=== PATIENT | male | born 1945 | race Caucasian/White ===

== ENCOUNTER 2021-08-18 09:27 | Emergency (ER) | payer MEDICARE, OTHER ==
[2021-08-18 09:38] VITALS: BP 117/53
--- NOTE | 2021-08-18 09:55 | ED Physician Documentation ---
PD HPI DYSPNEA - Stated complaint Stated Complaint: BODY ACHES,SOA - Chief complaint Chief Complaint: Resp - History obtained from History obtained from: Patient - Additional information Additional information: 76-year-old gentleman who says he may have COPD from prior smoking having quit in 2005 got acutely ill last night with shaking chills, fever to 103 and a productive cough. No sick contacts. He is fully immunized against COVID with Moderna vaccine. No pedal edema or calf pain. He is short of breath. States that during the H1N1 epidemic he has what sounds like a right sided empyema. Review of Systems Ten Systems: 10 systems reviewed and negative Constitutional: reports: Fever, Chills Cardiac: denies: Chest pain / pressure, Palpitations Respiratory: reports: Dyspnea, Cough PD PAST MEDICAL HISTORY - Present Medications Home Medications: Ambulatory Orders Medication Instructions Recorded Confirmed Amoxicillin/Potassium Clav 2 tab PO BID #20 tab 08/18/21 [Augmentin Xr 1,000-62.5 Tab] Azithromycin [Zithromax] 1 tab PO DAILY #4 tab 08/18/21 - Allergies Allergies/Adverse Reactions: Allergies Allergy/AdvReac Type Severity Reaction Status Date / Time No Known Drug Allergies Allergy Verified 08/18/21 09:38 PD ED PE NORMAL - Vitals Vital signs reviewed: Yes - General General: Alert and oriented X 3, No acute distress - HEENT HEENT: PERRL, EOMI - Neck Neck: Supple, no meningeal sign, No bony TTP - Cardiac Cardiac: RRR, No murmur - Respiratory Respiratory: No respiratory distress, Other (Diminished right base) - Abdomen Abdomen: Non tender - Back Back: No CVA TTP, No spinal TTP - Derm Derm: Normal color, Warm and dry - Extremities Extremities: No edema, No calf tenderness / cord - Neuro Neuro: Alert and oriented X 3, Normal speech Results - Vitals Vitals: Vital Signs - 24 hr 08/18/21 09:33 Temperature 37.1 C Heart Rate 86 Respiratory 24 Rate Blood Pressure 117/53 L O2 Saturation 93 - Labs Labs: Laboratory Tests 08/18/21 08/18/21 08/18/21 10:10 10:10 10:19 WBC 9.2 RBC 4.88 Hgb 15.1 Hct 44.8 MCV 91.8 MCH 30.9 MCHC 33.7 RDW 12.8 Plt Count 156 MPV 9.6 Neut # (Auto) 8.6 H Lymph # (Auto) 0.2 L [place] # (Auto) 0.3 Eos # (Auto) 0.0 Baso # (Auto) 0.0 Absolute Nucleated RBC 0.00 Nucleated RBC % 0.0 Sodium 134 L Potassium 3.9 Chloride 102 Carbon Dioxide 20 L Anion Gap 12.0 BUN 25 H Creatinine 1.2 Estimated GFR (MDRD) 59 L Glucose 184 H Lactic Acid 2.1 Calcium 8.9 - Rads (name of study) Single view chest x-ray demonstrates bibasilar opacities and potential scarring or trace effusion of the right base. Radiology: EMP read contemporaneously PD MEDICAL DECISION MAKING - ED course ED course: 76-year-old gentleman with clinical and radiographic pneumonia. He has been vaccinated against Covid but that is still a possibility and test is pending. He appears well and will be treated with antibiotics. Departure - Departure Disposition: Home, Self Care Clinical Impression: Pneumonia Condition: Good Record reviewed to determine appropriate education?: Yes Instructions: ED Pneumonia Adult Prescriptions: Amoxicillin/Potassium Clav [Augmentin Xr 1,000-62.5 Tab] 2 tab PO BID #20 tab Azithromycin [Zithromax] 1 tab PO DAILY #4 tab Comments: As discussed, your blood work is looking fairly unremarkable. You do have a mild bibasilar pneumonia on your x-ray. Return if you worsen. I sent your prescriptions electronically to the [facility] [place] Follow-up with your doctor Monday or Monday for recheck. I do recommend also considering with your physician a repeat x-ray in a few weeks to make sure all of the changes have resolved, also to see what changes were due to your prior episode with H1 N1 previously. You have a Covid test pending. You need to self quarantine until the result is done and negative. Do not leave your house. Do not get near anybody. The results should be done in 48 to 72 hours. We will call with a positive result, the fastest way to get a negative result for confirmation though is to go to the hospital website at [email or web address], click on the my [facility] tab and sign up for the patient portal. If any friends or family get sick and would like to have a Covid test done, but do not have signs or symptoms that would necessitate being hospitalized, there are multiple local options for Covid testing. [facility] keeps an updated list of testing and vaccination options at: [email or web address]. Discharge Date/Time: 08/18/21 11:16
--- NOTE | 2021-08-18 10:21 | XRAY Report ---
PROCEDURE: Chest 1 View X-Ray INDICATIONS: cough TECHNIQUE: One view of the chest was acquired. COMPARISON: None FINDINGS: Surgical changes and devices: None. Lungs and pleura: Minimal appearance of the right costophrenic angle blunting. There is a minimal kalyani earance of streaky bibasilar opacities. Mediastinum: Mediastinal contours appear normal. Heart size is normal. Bones and chest wall: No suspicious bony lesions. Overlying soft tissues appear unremarkable. IMPRESSION: Minimal streaky bibasilar opacities possibly related to dependent edema versus atelectasis/pneumonia. In addition, there is blunting of the right costophrenic angle suggestive of scarring versus trace e ffusion. No priors are available for comparison. Reviewed by: Nanci Trujillo MD on 08/18/2021 10:20 AM [facility] Approved by: Nanci Trujillo MD on 08/18/2021 10:20 AM [facility] Station ID: [id number]
[2021-08-18 10:36] LABS: BASOPHILS % (AUTO) 0.3 %; EOSINOPHILS % (AUTO) 0.1 %; HCT - HEMATOCRIT 44.8 % (42.0-52.0); HGB - HEMOGLOBIN 15.1 g/dL (14.0-18.0); LYMPHOCYTES # (AUTO) 0.2 10^3/uL (1.5-3.5); LYMPHOCYTES % (AUTO) 1.6 %; MEAN CORPUSCULAR HEMOGLOBIN 30.9 pg (27.0-31.0); MEAN CORPUSCULAR HGB CONC 33.7 g/dL (32.0-36.0); MEAN CORPUSCULAR VOLUME 91.8 fL (80.0-94.0); MEAN PLATELET VOLUME 9.6 fL (7.4-11.4); MONOCYTES # (AUTO) 0.3 10^3/uL (0.0-1.0); MONOCYTES % (AUTO) 3.3 %; NEUTROPHILS # (AUTO) 8.6 10^3/uL (1.5-6.6); NEUTROPHILS % (AUTO) 94.3 %; PLT - PLATELET COUNT 156 10^3/uL (130-450); RED BLOOD COUNT 4.88 10^6/uL (4.70-6.10); RED CELL DISTRIBUTION WIDTH 12.8 % (12.0-15.0); WHITE BLOOD COUNT 9.2 x10^3/uL (4.8-10.8)
[2021-08-18 10:41] LABS: CALCIUM 8.9 mg/dL (8.5-10.3); CREATININE 1.2 mg/dL (0.6-1.2); POTASSIUM 3.9 mmol/L (3.5-5.0)
[2021-08-18] MEDS ORDERED: AMOX/CLAV 875 MG/125 MG TABLET PO STA (10:57)
[2021-08-18] MEDS ORDERED: AZITHROMYCIN 250 MG TABLET PO STA (10:57)
--- NOTE | 2021-08-19 10:22 | ED Physician Documentation ---
ED Addendum - Addendum Addendum: 08/19/21 10:20 Overnight blood cultures grew gram negative rods suspicious for e coli pneumonia. PCR now showing e coli. d/w patient's Marlen in regards to how patient is doing and she states "we kind of had a little dispute about the medicine". I spoke with the patient and his over the phone and then clarified that he should be taking only 1000 mg augmentin (one pill) twice daily for 10 days, not two pills (i.e.,2000 mg) twice daily. Patient reports low grade temp about 100 last night. continuing to have cough, feeling slightly better. Feels mild dyspnea while experiencing chills but not currently SOA at present. Afebrile this morning. denies n/v/abd pain, diarrhea, urinary sx. Patient will continue augmentin and azithromycin and will return to the ED if not improving in a couple days. Other pertinent return precautions discussed. Plan to f/u with PMD. 08/19/21 10:27
--- NOTE | 2021-08-22 13:48 | ED Physician Documentation ---
ED Addendum - Addendum Addendum: 08/22/21 13:47 Cultures reviewed, 2 out of 2 blood cultures positive for E. coli. Previous reviewing physician had called the patient and he was doing better. I will asked the nurse to do this again. Since its been 4 days, if he is still okay feeling, probably okay to continue the current antibiotics.
== END 2021-08-18 11:16 | disposition home or self-care (01) ==
LOC: ED 09:27
DX: J15.5 Pneumonia due to Escherichia coli (principal); Z20.822 Contact with and (suspected) exposure to COVID-19
CPT/HCPCS: 36415; 71045; 80048; 83605; 85025; 87040; 87150; 87181; 99283; 99284; A9270; U0004

== ENCOUNTER 2021-08-31 17:03 | Inpatient (IN) | payer MEDICARE, OTHER ==
--- NOTE | 2021-08-31 17:25 | ED Physician Documentation ---
PD HPI CHEST PAIN - Stated complaint Stated Complaint: CP - Chief complaint Chief Complaint: Cardiac - History obtained from History obtained from: Patient - Additional information Additional information: 76-year-old gentleman with history of prostate cancer in remission and recent pneumonia was at rest today at 4 PM and developed 15 minutes of severe substernal chest pressure which was nonradiating, nonexertional, and not associated with sweats, nausea, nor shortness of breath. Since then it has been easing up. No history of heart problems. Review of Systems Ten Systems: 10 systems reviewed and negative Constitutional: denies: Fever, Chills Cardiac: denies: Palpitations Respiratory: denies: Dyspnea, Cough PD PAST MEDICAL HISTORY - Past Medical History Cardiovascular: Hypertension, High cholesterol Respiratory: None Endocrine/Autoimmune: None GI: GERD Derm: None - Past Surgical History Past Surgical History: Yes Ortho: Arthroscopic surgery - Present Medications Home Medications: Ambulatory Orders Medication Instructions Recorded Confirmed Amoxicillin/Potassium Clav 2 tab PO BID #20 tab 08/18/21 [Augmentin Xr 1,000-62.5 Tab] Azithromycin [Zithromax] 1 tab PO DAILY #4 tab 08/18/21 - Allergies Allergies/Adverse Reactions: Allergies Allergy/AdvReac Type Severity Reaction Status Date / Time No Known Drug Allergies Allergy Verified 08/31/21 17:18 - Social History Does the pt smoke?: No Smoking Status: Never smoker Does the pt drink ETOH?: No Does the pt have substance abuse?: No - Immunizations Immunizations are current?: Yes PD ED PE NORMAL - Vitals Vital signs reviewed: Yes - General General: Alert and oriented X 3, No acute distress - HEENT HEENT: PERRL, EOMI - Neck Neck: Supple, no meningeal sign, No bony TTP - Cardiac Cardiac: RRR, No murmur - Respiratory Respiratory: No respiratory distress, Clear bilaterally - Abdomen Abdomen: Non tender - Back Back: No CVA TTP, No spinal TTP - Derm Derm: Normal color, Warm and dry - Extremities Extremities: No edema, No calf tenderness / cord - Neuro Neuro: Alert and oriented X 3, Normal speech Results - Vitals Vitals: Vital Signs - 24 hr 08/31/21 08/31/21 17:14 18:18 Temperature 36.4 C L Heart Rate 73 69 Respiratory 18 13 Rate Blood Pressure 137/71 H 137/79 H O2 Saturation 96 97 Oxygen O2 Source Room air - EKG (time done) 1722 Rate: Rate (enter#) (69) Rhythm: NSR [place]: Normal Intervals: Normal [place], Other ([place] IVCD QRSd 113msec) QRS: Normal Ischemia: Normal ST segments - Labs Labs: Laboratory Tests 08/31/21 08/31/21 08/31/21 17:32 17:32 17:32 WBC 5.1 RBC 4.48 L Hgb 14.1 Hct 41.7 L MCV 93.1 MCH 31.5 H MCHC 33.8 RDW 12.4 Plt Count 337 MPV 8.6 Neut # (Auto) 3.9 Lymph # (Auto) 0.6 L [place] # (Auto) 0.3 Eos # (Auto) 0.1 Baso # (Auto) 0.1 Absolute Nucleated RBC 0.00 Nucleated RBC % 0.0 Sodium 137 Potassium 3.6 Chloride 100 L Carbon Dioxide 27 Anion Gap 10.0 BUN 15 Creatinine 1.0 Estimated GFR (MDRD) 73 L Glucose 126 H Calcium 8.6 Total Bilirubin 0.9 AST 171 H ALT 123 H Alkaline Phosphatase 165 H Troponin I High Sens 7.2 Total Protein 6.5 L Albumin 3.4 Globulin 3.1 Albumin/Globulin Ratio 1.1 Lipase 3948 H - Rads (name of study) The abdomen and pelvis demonstrates acute pancreatitis and a 45 mm liver abscess Radiology: EMP read contemporaneously PD MEDICAL DECISION MAKING - ED course ED course: 76-year-old gentleman had pneumonia 2 weeks ago and now has chest pain. At the beginning it sounded like a potential anginal equivalent but his troponin and EKG were negative. He was found to have biochemical significant pancreatitis with mild transaminitis and this was followed by CT showing pancreatitis and a liver abscess. In retrospect the E. coli bacteremia from 2 weeks ago was probably the liver abscess given that his chest x-ray was relatively underwhelming. I spoke with our on-call radiologist, Dr. Hobbs and he feels this can be drained at this facility. Also the on-call surgeon, Dr. Velez who will consult. He has an outpatient blood culture pending already from today and a second 1 was ordered. He is having rigors. Spoke with Dr. Rico for admission at 7:55 PM. Departure - Departure Disposition: [facility] DC/Xfer Clinical Impression: Pancreatitis, Hepatic abscess Condition: Serious
[2021-08-31 17:47] LABS: BASOPHILS # (AUTO) 0.1 10^3/uL (0.0-0.1); EOSINOPHILS # (AUTO) 0.1 10^3/uL (0.0-0.7); EOSINOPHILS % (AUTO) 2.6 %; HCT - HEMATOCRIT 41.7 % (42.0-52.0); HGB - HEMOGLOBIN 14.1 g/dL (14.0-18.0); LYMPHOCYTES # (AUTO) 0.6 10^3/uL (1.5-3.5); LYMPHOCYTES % (AUTO) 12.3 %; MEAN CORPUSCULAR HEMOGLOBIN 31.5 pg (27.0-31.0); MEAN CORPUSCULAR HGB CONC 33.8 g/dL (32.0-36.0); MEAN CORPUSCULAR VOLUME 93.1 fL (80.0-94.0); MEAN PLATELET VOLUME 8.6 fL (7.4-11.4); MONOCYTES # (AUTO) 0.3 10^3/uL (0.0-1.0); MONOCYTES % (AUTO) 6.5 %; NEUTROPHILS # (AUTO) 3.9 10^3/uL (1.5-6.6); NEUTROPHILS % (AUTO) 77.4 %; PLT - PLATELET COUNT 337 10^3/uL (130-450); RED BLOOD COUNT 4.48 10^6/uL (4.70-6.10); RED CELL DISTRIBUTION WIDTH 12.4 % (12.0-15.0); WHITE BLOOD COUNT 5.1 x10^3/uL (4.8-10.8)
--- NOTE | 2021-08-31 17:50 | XRAY Report ---
PROCEDURE: Chest 1 View X-Ray INDICATIONS: Chest Pain TECHNIQUE: One view of the chest was acquired. COMPARISON: 08/18/2021. FINDINGS: Surgical changes and devices: None. Lungs and pleura: No pleural effusions or pneumothorax. Streaky opacities in the lung bases. Mediastinum: Mediastinal contours appear normal. Heart size is normal. Bones and chest wall: No suspicious bony lesions. Overlying soft tissues appear unremarkable. IMPRESSION: Bibasilar atelectasis. Reviewed by: Melodie Winkler MD, PhD on 08/31/2021 4:48 PM [facility] Approved by: Melodie Winkler MD, PhD on 08/31/2021 4:48 PM [facility] Station ID: [id number]
[2021-08-31 18:26] LABS: ALBUMIN 3.4 g/dL (3.2-5.5); ALBUMIN/GLOBULIN RATIO 1.1 (1.0-2.2); BILIRUBIN,TOTAL 0.9 mg/dL (0.2-1.0); CALCIUM 8.6 mg/dL (8.5-10.3); POTASSIUM 3.6 mmol/L (3.5-5.0); TOTAL PROTEIN 6.5 g/dL (6.7-8.2)
[2021-08-31] MEDS ORDERED: iohexoL-300 100 ML VIAL ONE (18:42)
[2021-08-31] MEDS ORDERED: iohexoL-300 100 ML VIAL IVP ONE (19:17)
--- NOTE | 2021-08-31 19:26 | CT Report ---
PROCEDURE: Abdomen/Pelvis W INDICATIONS: IV only, pancreatitis CONTRAST: IV CONTRAST: Isovue 300 ml: 100 PO CONTRAST: *NO PO CONTRAST TECHNIQUE: After the administration of IV contrast, 5 mm thick sections acquired from the diaphragms to the symp hysis. 5 mm thick coronal and sagittal reformats were acquired. For radiation dose reduction, the f ollowing was used: automated exposure control, adjustment of mA and/or kV according to patient size. COMPARISON: None. FINDINGS: Image quality: Excellent. ABDOMEN: Lung bases: There is mild by basilar patchy opacity. Heart size is normal. Solid organs: Liver and spleen are normal in size. Within the medial segment left hepatic lobe super iorly, there is a 45 mm diameter peripherally enhancing low-density focus. Gallbladder is within norm al limits Biliary system is non dilated. Pancreas enhances normally. Mild fat stranding surrounds the pancreas. No adrenal nodules. Kidneys demonstrate normal size and enhancement, without hydroneph rosis. Peritoneum and bowel: Small hiatal hernia. There is mild thickening of the duodenum. No free fluid or air. Normal appendix. Nodes and vessels: No retroperitoneal or mesenteric adenopathy by size criteria. Aorta and inferior vena cava are normal in size. Miscellaneous: No ventral hernias. PELVIS: Genitourinary: Bladder wall thickness is normal. Miscellaneous: No inguinal hernias or adenopathy. Bones: No suspicious bony lesions. No vertebral body compression fractures. IMPRESSION: 1. Acute pancreatitis. 2. Secondary inflammation of the duodenum. 3. Low-density focus within the left hepatic lobe, suggestive of abscess. 4. Small hiatal hernia. 5. Normal appendix. Reviewed by: Rick Hobbs MD on 08/31/2021 7:25 PM PST Approved by: Rick Hobbs MD on 08/31/2021 7:25 PM PST Station ID: [id number]
[2021-08-31] MEDS ORDERED: cefTRIAXone 2 GM in SODIUM CHLORIDE 0.9% MINIBAG 100 ML IV STA (19:39)
[2021-08-31] MEDS ORDERED: cefTRIAXone 2 GM VIAL ONE (19:54)
[2021-08-31] MEDS ORDERED: ONDANSETRON ODT 4 MG TABLET TL PRN (19:59)
[2021-08-31] MEDS ORDERED: ONDANSETRON 4 MG/2 ML VIAL IVP PRN (19:59)
[2021-08-31] MEDS ORDERED: ACETAMINOPHEN 325 MG TABLET PO PRN (19:59)
[2021-08-31] MEDS ORDERED: SODIUM CHLORIDE FLUSH 0.9% 10 ML SYRINGE IVP PRN (19:59)
[2021-08-31] MEDS ORDERED: MORPHINE 2 MG/ML CARPUJECT IVP PRN (19:59)
[2021-08-31] MEDS ORDERED: oxyCODONE 5 MG TABLET PO PRN (19:59)
[2021-08-31] MEDS ORDERED: LACTATED RINGERS 1,000 ML IV SCH (20:00)
[2021-08-31 20:29] LABS: INR 1.2 (0.8-1.2); PT - PROTHROMBIN TIME 12.8 secs (9.9-12.6)
[2021-08-31 21:35] LABS: B. PARAPERTUSSIS- RESP PCR PAN NOT DETECTED; B. PERTUSSIS- RESP PCR PANEL NOT DETECTED; C. PNEUMONIAE- RESP PCR PANEL NOT DETECTED; CORONAVIRUS 229E-RESP PCR NOT DETECTED; CORONAVIRUS HKU1-RESP PCR NOT DETECTED; CORONAVIRUS NL63-RESP PCR NOT DETECTED; CORONAVIRUS OC43-RESP PCR NOT DETECTED; HUMAN METAPNEUMOVIRUS NOT DETECTED; INFLUENZA A- RESP PCR PANEL NOT DETECTED; INFLUENZA B - RESP PCR PANEL NOT DETECTED; M. PNEUMONIAE- RESP PCR PANEL NOT DETECTED; PARAINFLUENZA VIRUS 1 NOT DETECTED; PARAINFLUENZA VIRUS 2 NOT DETECTED; PARAINFLUENZA VIRUS 3 NOT DETECTED; PARAINFLUENZA VIRUS 4 NOT DETECTED; RHINOVIRUS/ENTEROVIRUS NOT DETECTED; RSV- RESP PCR PANEL NOT DETECTED; SARS-CoV-2 -RESP PCR PANEL NOT DETECTED
--- NOTE | 2021-08-31 22:11 | HISTORY & PHYSICAL EXAMINATION ---
Chief Complaint - Chief Complaint Chief Complaint: chest pain History of Present Illness - Admitted From Admitted From:: Home via EMS - History Obtained From Records Reviewed: [facility] History obtained from: patient Exam Limitations: none - History of Present Illness HPI Comment/Other: This is a 76-year-old white male who lives in his own home, is considered independent, and presented to the emergency room on August 18 with fever, chills, malaise. Accompanying that was shortness of breath. He smoked a pack and a half a day and quit in 2005. He states there is no change in phlegm. He hocks up a loogie once or twice a day and that is unchanged. It's a small amount and hasn't changed color in years. At that time he had no chest pain, cough, just shortness of breath. He is fully immunized with Moderna vaccine. He denied any abdominal pain, change in bowel habits. In the emergency room he had a low-grade temperature of 37.1. White cell count was normal. Lactic acid 2.1. BMP was normal. A chest x-ray had bibasilar opacities and trace right lung effusion. The thought process was that he had possible pneumonia. He was not hypoxic, tachycardic, and able to go home. He was sent home with Augmentin and azithromycin. Blood cultures were became positive within 12 hours. They grew out E. coli. The patient was contacted on August 19 and was improving. He was then contacted again August 22 when 2 out of 2 blood cultures grew out E. coli. And he was feeling better. Both times he was told to follow-up with his primary care provider. He followed up with his primary care provider today who sent him to the lab to get repeat blood cultures. He then went home. While he was home, sitting on the sofa watching TV, he had a 15-minute episode of substernal chest pain. It was nonradiating. There was no sweats, nausea or shortness of breath with it. No palpitations. He has no history of cardiac disease. He was concerned about heart disease and came to the emergency room. He states that he has been "off his feet" since August 18. As such he has not eaten very much and has lost about 10 pounds. No specific abdominal pain. He has been fatigued, no energy. On today's visit his temperature was 36.4. Heart rate 73. Respirations 18. Blood pressure 137/71 and he was 96% on room air. His exam was unremarkable for cardiopulmonary disease. He is EKG was essentially normal. Troponin was 7. Chest x-ray had the same bibasilar atelectasis. However, more extensive blood work was done today. He had a CMP done which showed AST to be 171, ALT 123, alk phos 165 and bilirubin 0.9. Lipase was 3948. In trying to track down why his liver enzymes and lipase were elevated, a CT of the abdomen and pelvis was ordered. The liver and spleen were normal in size. Biliary system was not dila adelia. Pancreas enhance normally with mild fat stranding surrounding the pancreas. However, in the medial segment of the left hepatic lobe superiorly there was a 45 mm diameter peripherally enhancing low-density focus compatible with an abscess. There is no appendicitis, diverticulitis. Small hiatal hernia. He had some secondary inflammation of the duodenum. Although he did not have a fever or elevated white cell count, the patient experienced rigors in the emergency room. Dr. Couch has already spoken to Dr. Velez from general surgery. He is also spoken to radiology on-call [facility], and both specialties agree that the patient will need percutaneous aspiration if not catheter drainage. Dr. Banks gave the patient Karely in the emergency room. Drinks 2 beers a day. Is not a diabetic. Has not had any recent travel outside [facility], much less the country. He does not like fish and as such does not eat sushi. He lives in [place] and drinks city water. 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 History - Past Medical History Cardiovascular: reports: Hypertension, High cholesterol Respiratory: reports: Shortness of breath (chronic from smoking but denies COPD or emphysema) Neuro: reports: None Endocrine/Autoimmune: reports: Other (glucose intolerance, "flunked my blood work recently") GI: reports: GERD : reports: Retention, Incontinence, Nocturia, Frequency, Other (prostate cancer ) Psych: reports: None Musculoskeletal: reports: None Derm: reports: None MRSA Hx?: No - Past Surgical History General: reports: Other (inguina hernia repair) Ortho: reports: Arthroscopic surgery /SUBSTANCE ABUSE THERAPIST: reports: Other (prostatectomy) HEENT: reports: Other (thyroglossal duct removal) - Family & Social History Family History Comment/Other: Mom and dad at age 89 and 90 respectively. He states they basically of old age and were very healthy. 2 sisters without any major medical illnesses. 1 child without any major medical illness. Living arrangement: At home Living Situation: With spouse/s.o. Social History Notes: to his first for decades. 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 Smoked 1 and a 1/2 packs/day until 2005. Drinks 2 beers a day and quit 10 days ago because he just felt so lousy. He has no history of alcohol abuse. He has never had withdrawal. He has no history of recreational substance abuse. - Substance History Use: Uses substance without health or social issues: Tobacco, Alcohol Abuse: Recurrent use of substance despite neg consequences: NONE Dependence: Experiences withdrawal or developed tolerances: NONE - POLST Patient has POLST: No POLST Status: Full Code (He wants everything done to resuscitate him) Meds/Allgy - Home Medications Home Medications: Ambulatory Orders Medication Instructions Recorded Confirmed Amoxicillin/Potassium Clav 2 tab PO BID #20 tab 08/18/21 [Augmentin Xr 1,000-62.5 Tab] Azithromycin [Zithromax] 1 tab PO DAILY #4 tab 08/18/21 - Allergies Allergies/Adverse Reactions: Allergies Allergy/AdvReac Type Severity Reaction Status Date / Time No Known Drug Allergies Allergy Verified 08/31/21 17:18 Review of Systems - Constitutional Constitutional: reports: Fatigue, Fever, Chills, Malaise, Weakness, Poor appetite, Other (All of these symptoms have been in the last 2 to 3 weeks. Rigors were tonight) - Eyes Eyes: denies: Irritation, Amaurosis, Blurred vision - Ears, Nose & Throat Ears, Nose & Throat: denies: Ear pain, Hearing loss, Hearing aids, Nasal obstruction, Nasal congestion, Sore throat, Hoarseness - Cardiovascular Cariovascular: reports: Chest pain, Exertional dyspnea, Decr. exercise tolerance. denies: Irregular heart rate, Palpitations, Edema, Lightheadedness, Syncope - Respiratory Respiratory: reports: Cough, Sputum production, Wheezing, SOB with exertion. denies: Snoring, Hemoptysis, Orthopnea, SOB at rest - Gastrointestinal Gastrointestinal: reports: Nausea, Vomiting (emesis occurred during physical exam). denies: Abdominal pain, Abdominal distention, Constipation, Diarrhea, Change in bowel habits, Rectal bleeding - Genitourinary Genitourinary: reports: Frequency, Urgency, Incontinence, Nocturia, Other (He has had all of these symptoms since his prostate resection). denies: Dysuria, Hematuria - Musculoskeletal Musculoskeletal: denies: Muscle pain, Back pain, Muscle aches, Stiffness, Gout, Joint pain - Integumentary Integumentary: denies: Rash, Pruritis, Lesions - Neurological Neurological: reports: General weakness. denies: Focal weakness, Headache, Dizziness, Numbness, Memory problems, Pre-existing deficit, Abnormal gait - Psychiatric Psychiatric: denies: Depression, Anxiety, Suicidal, Delusions, Hallucinations - Endocrine Endocrine: denies: Polyuria, Polydypsia, Polyphagia, Intolerance to cold - Hematologic/Lymphatic Hematologic/Lymphatic: denies: Anemia, Bruising, Petechiae Prior Level of Functionality: Independent with activities of daily living, no use of durable medical equipment. He feels he needs oxygen but his primary care provider states he does not. The most he can walk is about 25 to 30 feet in his house due to dyspnea on exertion. So he is slow to move. Exam - Vital Signs Reviewed Vital Signs: Yes Vital Signs: Vital Signs x48h Temp Pulse Pulse Resp BP BP Pulse Ox 08/31/21 21:30 37.1 C 73 16 114/55 L 97 08/31/21 20:00 77 13 108/60 97 08/31/21 18:18 69 13 137/79 H 97 08/31/21 17:14 36.4 C L 73 18 137/71 H 96 - Physical Exam General Appearance: positive: Alert, Moderate distress (Severe nausea, a light sheen of sweat on his forehead, and fatigue.), Other (very pale, fatigued appearing, unshaven) Eyes Bilateral: positive: PERRL, EOMI ENT: positive: Pharynx nml. negative: Oral lesions Neck: positive: No JVD, Lymphadenopathy (R), Lymphadenopathy (L) (The adenopathy both sides). negative: Stiff neck, Carotid bruit Respiratory: positive: No respiratory distress. negative: Wheezes, Rales, Rhonchi Cardiovascular: positive: Regular rate & rhythm. negative: No murmur, No gallop, Friction rub Peripheral Pulses: positive: 1+ Abdomen: positive: No organomegaly, Nml bowel sounds, Other (diffusely distended and firm abd wall, tender (mild) over LUQ but no rebound or guarding) Skin: positive: Warm, Dry, Pallor, Other Extremities: positive: Non-tender, Full ROM, No pedal edema, Other (hands cold). negative: Calf tenderness Neurologic/Psychiatric: positive: Oriented x3, CN's nml (2-12), Motor nml, Sensation nml Conclusion/Plan - Problem List (1) Hepatic abscess Conclusion/Plan: This is a gentleman that is not at risk for Entamoeba histolytica. He does not eat fish so I do not think he is at risk for fish borne disease. As such the conclusion will be that of pyogenic liver abscess. Again those tend to be on the right side. His is on the left. In a review of the literature there was one meta-analysis were 95% of liver abscesses were on the right due to greater hepatic flow on that side. Cause of pyogenic abscess would be biliary tract disease, hematogenous spread from emboli or other infective source, central line infection. None of those seem to apply to him. CT does not show any biliary pathology. Plan: Inpatient status Serology for Entamoeba histolytica Antibiotic therapy with metronidazole and Zosyn. [place] antibiotic guide says the patient is may need antibiotics for up to 4 weeks. N.p.o. status for possible percutaneous drainage tomorrow INR today MRCP to delineate his pacreatic ductal system Consider PICC line to ease access during duration of therapy (2) E coli bacteremia Conclusion/Plan: Repeat blood cultures were done today. We will have to follow-up on them to see if this problem has resolved with oral antibiotics. (3) COPD (chronic obstructive pulmonary disease) Conclusion/Plan: He states that he has chronic dyspnea on exertion for years. But he does not qualify for oxygen. He states he does not wheeze, and asked that she is on a bronchodilator therapy. But his endurance is less than 30 feet when walking in his home. Plan: Outpatient evaluation with pulmonary function studies [place] and albuterol while here Qualifiers: COPD type: emphysema Emphysema type: unspecified Qualified Code(s): J43.9 - Emphysema, unspecified (4) History of prostate cancer Conclusion/Plan: With continued symptoms of urgency, frequency, occasional incontinence when he coughs. Plan: Check urinalysis, check PSA (5) GERD (gastroesophageal reflux disease) Conclusion/Plan: As needed Protonix Qualifiers: Esophagitis presence: without esophagitis Qualified Code(s): K21.9 - Gastro-esophageal reflux disease without esophagitis (6) Chest pain Conclusion/Plan: Without hypoxia, palpitations, diaphoresis or radiation. He does have risk for coronary artery disease. Troponin was negative, EKG was negative. He would be a candidate for a stress test in the outpatient setting. Qualifiers: Chest pain type: unspecified Qualified Code(s): R07.9 - Chest pain, unspecified (7) Hyperglycemia Conclusion/Plan: He denies a diagnosis of diabetes, but states that his sugars have been climbing and he "flunked his blood test" in the last few weeks. He is not very clear about what that means. Plan: Check glycosylated hemoglobin Sliding scale insulin - Lab Results Lab results reviewed: Yes Fish Bones: 08/31/21 17:32 08/31/21 17:32 - Diagnostic Imaging Results Diagnostic Imaging Results: positive: Final report reviewed - EKG Results EKG Interpreted Independently: No EKG Comparison: No prior EKG EKG Findings: Normal sinus rhythm, no acute ischemic changes Core Measures - Anticipated LOS I expect patient to be DC'd or transferred within 96 hours.: Yes - DVT/VTE - Prophylaxis VTE/DVT Device ordered at admit?: Yes
[2021-08-31] MEDS ORDERED: PIPERACILLIN/TAZOBACTAM 3.375 GM in SODIUM CHLORIDE 0.9% MINIBAG 100 ML IV SCH (23:45)
[2021-09-01] MEDS ORDERED: PIPERACILLIN/TAZOBACTAM 4.5 GM in SODIUM CHLORIDE 0.9% MINIBAG 100 ML IV ONE ×2
[2021-09-01] MEDS: metroNIDAZOLE 500 MG/100 ML 500 MG/100 ML BAG IV SCH ×3 (00:31→15:09)
[2021-09-01] MEDS: SODIUM CHLORIDE FLUSH 0.9% 10 ML SYRINGE IVP SCH ×3 (01:41→16:51)
[2021-09-01] MEDS: PIPERACILLIN/TAZOBACTAM 3.375 GM in SODIUM CHLORIDE 0.9% MINIBAG 100 ML IV SCH ×3 (02:44→19:37)
[2021-09-01 06:49] LABS: BASOPHILS % (AUTO) 0.3 %; EOSINOPHILS % (AUTO) 0.1 %; HCT - HEMATOCRIT 41.1 % (42.0-52.0); HGB - HEMOGLOBIN 13.6 g/dL (14.0-18.0); LYMPHOCYTES # (AUTO) 0.3 10^3/uL (1.5-3.5); LYMPHOCYTES % (AUTO) 2.2 %; MEAN CORPUSCULAR HEMOGLOBIN 30.6 pg (27.0-31.0); MEAN CORPUSCULAR HGB CONC 33.1 g/dL (32.0-36.0); MEAN CORPUSCULAR VOLUME 92.6 fL (80.0-94.0); MEAN PLATELET VOLUME 8.8 fL (7.4-11.4); MONOCYTES # (AUTO) 0.6 10^3/uL (0.0-1.0); MONOCYTES % (AUTO) 4.5 %; NEUTROPHILS # (AUTO) 12.1 10^3/uL (1.5-6.6); NEUTROPHILS % (AUTO) 92.3 %; PLT - PLATELET COUNT 312 10^3/uL (130-450); RED BLOOD COUNT 4.44 10^6/uL (4.70-6.10); RED CELL DISTRIBUTION WIDTH 12.5 % (12.0-15.0); WHITE BLOOD COUNT 13.1 x10^3/uL (4.8-10.8)
[2021-09-01] MEDS ORDERED: PANTOPRAZOLE 40 MG TABLET PO SCH (07:00)
[2021-09-01 07:13] LABS: BILIRUBIN,TOTAL 2.5 mg/dL (0.2-1.0); CALCIUM 8.4 mg/dL (8.5-10.3); CREATININE 1.2 mg/dL (0.6-1.2); TOTAL PROTEIN 6.1 g/dL (6.7-8.2)
[2021-09-01] MEDS ORDERED: LACTATED RINGERS 1,000 ML IV ONE ×2 (07:18→08:45)
--- NOTE | 2021-09-01 08:01 | PROVIDER PROGRESS NOTE ---
Subjective - Prog Note Date Prog Note Date: 09/01/21 Current Medications - Current Medications Current Medications: Active Medications Acetaminophen (Acetaminophen 325 Mg Tablet) 650 mg PO Q4HR PRN PRN Reason: Pain 1 to 4 Last Admin: 08/31/21 22:10 Dose: 650 mg Enoxaparin Sodium (Enoxaparin 40 Mg/0.4 Ml Syringe) 40 mg SUBQ DAILY [facility] Lactated Ringer's (Lr) 1,000 mls @ 100 mls/hr IV .Q10H [facility] Last Admin: 08/31/21 21:31 Dose: 100 mls/hr Metronidazole (Flagyl 500 Mg/100 Ml) 500 mg in 100 mls @ 100 mls/hr IV Q8H [facility] Last Admin: 09/01/21 06:56 Dose: 100 mls/hr Piperacillin Sod/Tazobactam (Sod 3.375 gm/ Sodium Chloride) 100 mls @ 25 mls/hr IV Q8H [facility] Last Infusion: 09/01/21 06:53 Dose: Infused Lactated Ringer's (Lr) 1,000 mls @ 999 mls/hr IV ONCE ONE Stop: 09/01/21 08:18 Morphine Sulfate (Morphine 2 Mg/Ml Carpuject) 2 mg IVP Q2HR PRN PRN Reason: Pain 8 to 10 Ondansetron HCl (Ondansetron Odt 4 Mg Tablet) 4 mg TL Q6HR PRN PRN Reason: Nausea / Vomiting Ondansetron HCl (Ondansetron 4 Mg/2 Ml Vial) 4 mg IVP Q6HR PRN PRN Reason: Nausea / Vomiting Last Admin: 08/31/21 21:41 Dose: 4 mg Oxycodone HCl (Oxycodone 5 Mg Tablet) 5 mg PO Q4HR PRN PRN Reason: Pain 5 to 7 Pantoprazole Sodium (Pantoprazole 40 Mg Tablet) 40 mg PO QDAC [facility] Last Admin: 09/01/21 06:56 Dose: 40 mg Sodium Chloride (Sodium Chloride Flush 0.9% 10 Ml Syringe) 10 ml IVP PRN PRN PRN Reason: NEEDED PER PROVIDER ORDERS Last Admin: 08/31/21 21:42 Dose: 10 ml Sodium Chloride (Sodium Chloride Flush 0.9% 10 Ml Syringe) 10 ml IVP 0100,0900,1700 [facility] Last Admin: 09/01/21 01:41 Dose: 10 ml Objective - Vital Signs/Intake & Output Reviewed Vital Signs: Yes Vital Signs: Vital Signs x48h Temp Pulse Resp BP BP Pulse Ox 09/01/21 07:55 37.2 C 65 18 116/64 95 09/01/21 00:42 38.1 C H 88 17 112/60 92 Intake & Output: Intake & Output 08/29/21 08/30/21 08/31/21 09/01/21 23:59 23:59 23:59 23:59 Intake Total 100 300 Balance 100 300 - Lab Results Fish Bones: 09/01/21 06:28 09/01/21 06:28 Other Labs: Lab Results x24hrs 09/01/21 09/01/21 08/31/21 Range/Units 06:28 06:28 20:30 WBC 13.1 H (4.8-10.8) x10^3/uL RBC 4.44 L (4.70-6.10) 10^6/uL Hgb 13.6 L (14.0-18.0) g/dL Hct 41.1 L (42.0-52.0) % MCV 92.6 (80.0-94.0) fL MCH 30.6 (27.0-31.0) pg MCHC 33.1 (32.0-36.0) g/dL RDW 12.5 (12.0-15.0) % Plt Count 312 (130-450) 10^3/uL MPV 8.8 (7.4-11.4) fL Neut # (Auto) 12.1 H (1.5-6.6) 10^3/uL Lymph # (Auto) 0.3 L (1.5-3.5) 10^3/uL [place] # (Auto) 0.6 (0.0-1.0) 10^3/uL Eos # (Auto) 0.0 (0.0-0.7) 10^3/uL Baso # (Auto) 0.0 (0.0-0.1) 10^3/uL Absolute Nucleated RBC 0.00 x10^3/uL Nucleated RBC % 0.0 /100WBC PT (9.9-12.6) secs INR (0.8-1.2) Sodium 135 (135-145) mmol/L Potassium 4.0 (3.5-5.0) mmol/L Chloride 100 L (101-111) mmol/L Carbon Dioxide 25 (21-32) mmol/L Anion Gap 10.0 (6-13) BUN 16 (6-20) mg/dL Creatinine 1.2 (0.6-1.2) mg/dL Estimated GFR (MDRD) 59 L (>89) Glucose 229 H (70-100) mg/dL Calcium 8.4 L (8.5-10.3) mg/dL Total Bilirubin 2.5 H (0.2-1.0) mg/dL AST 484 H (10-42) IU/L ALT 470 H (10-60) IU/L Alkaline Phosphatase 214 H (42-121) IU/L Troponin I High Sens (2.3-19.7) ng/L Total Protein 6.1 L (6.7-8.2) g/dL Albumin 3.0 L (3.2-5.5) g/dL Globulin 3.1 (2.1-4.2) g/dL Albumin/Globulin Ratio 1.0 (1.0-2.2) Amylase 1261 H* (28-100) U/L Lipase (22-51) U/L Nasal Adenovirus (PCR) NOT DETECTED Nasal B. parapertussis DNA (PCR) NOT DETECTED Nasal Coronavir 229E PCR NOT DETECTED Nasal Coronavir HKU1 PCR NOT DETECTED Nasal Coronavir NL63 PCR NOT DETECTED Nasal Coronavir OC43 PCR NOT DETECTED Nasal Enterovir/Rhinovir PCR NOT DETECTED Nasal Influenza B PCR NOT DETECTED Nasal Influenza A PCR NOT DETECTED Nasal Parainfluen 1 PCR NOT DETECTED Nasal Parainfluen 2 PCR NOT DETECTED Nasal Parainfluen 3 PCR NOT DETECTED Nasal Parainfluen 4 PCR NOT DETECTED Nasal RSV (PCR) NOT DETECTED Nasal B.pertussis DNA PCR NOT DETECTED Nasal C.pneumoniae (PCR) NOT DETECTED [place] Human Metapneumo PCR NOT DETECTED Nasal M.pneumoniae (PCR) NOT DETECTED Nasal SARS-CoV-2 (PCR) NOT DETECTED 08/31/21 08/31/21 08/31/21 Range/Units 20:09 17:32 17:32 WBC (4.8-10.8) x10^3/uL RBC (4.70-6.10) 10^6/uL Hgb (14.0-18.0) g/dL Hct (42.0-52.0) % MCV (80.0-94.0) fL MCH (27.0-31.0) pg MCHC (32.0-36.0) g/dL RDW (12.0-15.0) % Plt Count (130-450) 10^3/uL MPV (7.4-11.4) fL Neut # (Auto) (1.5-6.6) 10^3/uL Lymph # (Auto) (1.5-3.5) 10^3/uL [place] # (Auto) (0.0-1.0) 10^3/uL Eos # (Auto) (0.0-0.7) 10^3/uL Baso # (Auto) (0.0-0.1) 10^3/uL Absolute Nucleated RBC x10^3/uL Nucleated RBC % /100WBC PT 12.8 H (9.9-12.6) secs INR 1.2 (0.8-1.2) Sodium 137 (135-145) mmol/L Potassium 3.6 (3.5-5.0) mmol/L Chloride 100 L (101-111) mmol/L Carbon Dioxide 27 (21-32) mmol/L Anion Gap 10.0 (6-13) BUN 15 (6-20) mg/dL Creatinine 1.0 (0.6-1.2) mg/dL Estimated GFR (MDRD) 73 L (>89) Glucose 126 H (70-100) mg/dL Calcium 8.6 (8.5-10.3) mg/dL Total Bilirubin 0.9 (0.2-1.0) mg/dL AST 171 H (10-42) IU/L ALT 123 H (10-60) IU/L Alkaline Phosphatase 165 H (42-121) IU/L Troponin I High Sens 7.2 (2.3-19.7) ng/L Total Protein 6.5 L (6.7-8.2) g/dL Albumin 3.4 (3.2-5.5) g/dL Globulin 3.1 (2.1-4.2) g/dL Albumin/Globulin Ratio 1.1 (1.0-2.2) Amylase (28-100) U/L Lipase 3948 H (22-51) U/L Nasal Adenovirus (PCR) Nasal B. parapertussis DNA (PCR) Nasal Coronavir 229E PCR Nasal Coronavir HKU1 PCR Nasal Coronavir NL63 PCR Nasal Coronavir OC43 PCR Nasal Enterovir/Rhinovir PCR Nasal Influenza B PCR Nasal Influenza A PCR Nasal Parainfluen 1 PCR Nasal Parainfluen 2 PCR Nasal Parainfluen 3 PCR Nasal Parainfluen 4 PCR Nasal RSV (PCR) Nasal B.pertussis DNA PCR Nasal C.pneumoniae (PCR) [place] Human Metapneumo PCR Nasal M.pneumoniae (PCR) Nasal SARS-CoV-2 (PCR) 08/31/21 Range/Units 17:32 WBC 5.1 (4.8-10.8) x10^3/uL RBC 4.48 L (4.70-6.10) 10^6/uL Hgb 14.1 (14.0-18.0) g/dL Hct 41.7 L (42.0-52.0) % MCV 93.1 (80.0-94.0) fL MCH 31.5 H (27.0-31.0) pg MCHC 33.8 (32.0-36.0) g/dL RDW 12.4 (12.0-15.0) % Plt Count 337 (130-450) 10^3/uL MPV 8.6 (7.4-11.4) fL Neut # (Auto) 3.9 (1.5-6.6) 10^3/uL Lymph # (Auto) 0.6 L (1.5-3.5) 10^3/uL [place] # (Auto) 0.3 (0.0-1.0) 10^3/uL Eos # (Auto) 0.1 (0.0-0.7) 10^3/uL Baso # (Auto) 0.1 (0.0-0.1) 10^3/uL Absolute Nucleated RBC 0.00 x10^3/uL Nucleated RBC % 0.0 /100WBC PT (9.9-12.6) secs INR (0.8-1.2) Sodium (135-145) mmol/L Potassium (3.5-5.0) mmol/L Chloride (101-111) mmol/L Carbon Dioxide (21-32) mmol/L Anion Gap (6-13) BUN (6-20) mg/dL Creatinine (0.6-1.2) mg/dL Estimated GFR (MDRD) (>89) Glucose (70-100) mg/dL Calcium (8.5-10.3) mg/dL Total Bilirubin (0.2-1.0) mg/dL AST (10-42) IU/L ALT (10-60) IU/L Alkaline Phosphatase (42-121) IU/L Troponin I High Sens (2.3-19.7) ng/L Total Protein (6.7-8.2) g/dL Albumin (3.2-5.5) g/dL Globulin (2.1-4.2) g/dL Albumin/Globulin Ratio (1.0-2.2) Amylase (28-100) U/L Lipase (22-51) U/L Nasal Adenovirus (PCR) Nasal B. parapertussis DNA (PCR) Nasal Coronavir 229E PCR Nasal Coronavir HKU1 PCR Nasal Coronavir NL63 PCR Nasal Coronavir OC43 PCR Nasal Enterovir/Rhinovir PCR Nasal Influenza B PCR Nasal Influenza A PCR Nasal Parainfluen 1 PCR Nasal Parainfluen 2 PCR Nasal Parainfluen 3 PCR Nasal Parainfluen 4 PCR Nasal RSV (PCR) Nasal B.pertussis DNA PCR Nasal C.pneumoniae (PCR) [place] Human Metapneumo PCR Nasal M.pneumoniae (PCR) Nasal SARS-CoV-2 (PCR) ABX Reporting Has patient been on IV antibiotics over the past 48 hours?: Yes Sepsis Event Note (H) - Evaluation Current Stage of Sepsis: Sepsis Possible source of Sepsis: positive: GI tract/intra-abdominal - Sepsis Criteria Sepsis Criteria: Recorded Temperature greater than 38.3C or Less than 36C, WBC count greater than 12,000 or less than 4000, Hepatic: Bilirubin greater than 2mg/dl Assessment/Plan - Problem List (1) Sepsis Impression: He has sepsis secondary to the liver abscess and the E. coli bacteremia. He continues to have fevers and his white count is increased to 13,000 today with a left shift. His blood pressure is stable and he is not tachycardic. Initial blood cultures grew E. coli and repeat blood cultures are pending. We will keep him on Zosyn and Flagyl IV empirically to cover for gram negatives, anaerobes, and Entamoeba histolytica. Continue IV hydration with lactated Ringer's. (2) Hepatic abscess Impression: CT is concerning for left lobe liver abscess. He does not have risk factors for amoeba histolytica we have ordered serology. Imaging did not reveal any biliary dilatation but we have also ordered an MRCP for further evaluation. IR has been consulted for drainage. We will keep the patient on Zosyn and Flagyl IV empirically. Follow up MRCP results. He will likely need a PICC line for prolonged IV antibiotics of 2-4 weeks if there is adequate drainage of the abscess.. (3) E coli bacteremia Impression: Blood cultures from August 18 grew E. coli. He is now on Zosyn and Flagyl IV. Repeat blood cultures are pending. This appears to be the cause of the hepatic abscess. (4) Pancreatitis Impression: He presented with chest pain but his lipase is nearly [address] of the abdomen pelvis confirms pancreatitis. There is no biliary dilatation. His LFTs are elevated today. We will give him 2 L of lactated Ringer's and increase maintenance IV fluids to 200 mL an hour. Continue Zofran as needed and morphine IV for pain control. Follow-up MRCP results. NPO. Qualifiers: Chronicity: acute (5) Chest pain Impression: He presented with chest pain but there is low suspicion for ACS. His EKG does not suggest ischemia and his initial troponin is negative. Suspect this may related to the underlying abscess or pancreatitis. We will continue to trend his troponin. Qualifiers: Chest pain type: unspecified Qualified Code(s): R07.9 - Chest pain, unspecified (6) Transaminitis Impression: His LFTs are quite elevated today compared to admission. His total bilirubin is not 2.5 and his AST and ALT are nearly 500. Imaging yesterday revealed no obvious biliary dilation. This may be related to the abscess but we have ordered MRCP for further evaluation. (7) History of prostate cancer Impression: This is in remission. PSA has been ordered. (8) COPD (chronic obstructive pulmonary disease) Impression: Not in exacerbation. Continue with albuterol as needed. Qualifiers: COPD type: emphysema Emphysema type: unspecified Qualified Code(s): J43.9 - Emphysema, unspecified (9) GERD (gastroesophageal reflux disease) Impression: Continue protonix. Qualifiers: Esophagitis presence: without esophagitis Qualified Code(s): K21.9 - Gastro-esophageal reflux disease without esophagitis
--- NOTE | 2021-09-01 10:41 | CONSULTATION NOTE ---
Referring Provider Consult Date: 09/01/21 Chief Complaint - Chief Complaint Chief Complaint: not feeling well for a week followed by left upper quadrant pain History of Present Illness - Admitted From Admitted From:: ED - History Obtained From Records Reviewed: yes History obtained from: pt Exam Limitations: none - History of Present Illness HPI Comment/Other: Not feeling well for a week. He was seen and evaluated a week ago. Blood cultures positive for ecoli. Yesterday he developed left upper quadrant discomfort. He was again seen and evaluated in the ED. Ct scan distal p ancreatitis, fairly mild, and 4 cm right lobe liver abscess. Gallbladder normal by ct. History - Past Medical History Cardiovascular: reports: Hypertension, High cholesterol Respiratory: reports: Shortness of breath (chronic from smoking but denies COPD or emphysema) Neuro: reports: None Endocrine/Autoimmune: reports: Other (glucose intolerance, "flunked my blood work recently") GI: reports: GERD : reports: Retention, Incontinence, Nocturia, Frequency, Other (prostate cancer ) Psych: reports: None Musculoskeletal: reports: None Derm: reports: None MRSA Hx?: No - Past Surgical History General: reports: Other (inguina hernia repair) Ortho: reports: Arthroscopic surgery /FR[employer]: reports: Other (prostatectomy) HEENT: reports: Other (thyroglossal duct removal) - Family & Social History Family History Comment/Other: Mom and dad at age 89 and 90 respectively. He states they basically of old age and were very healthy. 2 sisters without any major medical illnesses. 1 child without any major medical illness. Living arrangement: At home Living Situation: With spouse/s.o. Social History Notes: to his first for decades. Retired [employer] where he was [employer]. Smoked 1 and a 1/2 packs/day until 2005. Drinks 2 beers a day and quit 10 days ago because he just felt so lousy. He has no history of alcohol abuse. He has never had withdrawal. He has no history of recreational substance abuse. - Substance History Use: Uses substance without health or social issues: Tobacco, Alcohol Abuse: Recurrent use of substance despite neg consequences: NONE Dependence: Experiences withdrawal or developed tolerances: NONE - POLST Patient has POLST: No POLST Status: Full Code (He wants everything done to resuscitate him) Meds/Allgy - Home Medications Home Medications: Ambulatory Orders Medication Instructions Recorded Confirmed Amoxicillin/Potassium Clav 2 tab PO BID #20 tab 08/18/21 [Augmentin Xr 1,000-62.5 Tab] Azithromycin [Zithromax] 1 tab PO DAILY #4 tab 08/18/21 - Allergies Allergies/Adverse Reactions: Allergies Allergy/AdvReac Type Severity Reaction Status Date / Time No Known Drug Allergies Allergy Verified 08/31/21 17:18 Review of Systems - Other Findings Other Findings: 10 pt ros as above otherwise unremarkable Exam - Vital Signs Reviewed Vital Signs: Yes Vital Signs: Vital Signs x48h Temp Pulse Resp BP Pulse Ox 09/01/21 07:55 37.2 C 65 18 116/64 95 - Physical Exam General Appearance: positive: No acute distress, Alert Eyes Bilateral: positive: PERRL, EOMI, No scleral icterus ENT: positive: No signs of dehydration Neck: positive: No JVD Respiratory: positive: No respiratory distress Cardiovascular: positive: Regular rate & rhythm Abdomen: positive: No distention, Other (mild left upper quadrant tenderness no peritoneal signs) Neurologic/Psychiatric: positive: Oriented x3 Conclusion/Plan - Problem List (1) Hepatic abscess Conclusion/Plan: right lobe liver abscess and fairly mild pancreatitis of the tail. Agree with current care perhaps clears tomorrow if his ileus is improved. in patient or outpatient ultrasound gallbladder is recommended if his mrcp does not show gallstones. - Lab Results Lab results reviewed: Yes Fish Bones: 09/01/21 06:28 09/01/21 06:28
[2021-09-01 10:52] LABS: PSA FREE < 0.005 ng/mL (0.16-2.81); PSA TOTAL < 0.008 ng/mL (0.000-2.000)
[2021-09-01] MEDS ORDERED: GADOBUTROL 10 MMOL/10 ML VIAL ONE (11:24)
--- NOTE | 2021-09-01 12:43 | PHARMACY PROGRESS NOTE ---
- Best Possible Medication History Admit Date and Time: 08/31/211958 Processed by: Pharmacy Medication History completed: Yes Patient Interview: Completed As the person ultimately responsible for medication therapy, providers are able to order a medication from an existing home medication list in [facility] via the "Reconcile Routine" prior to Confirmation of that medication by call center support representative. Such practice is discouraged except when the physician, in their clinical donny gment, deems that a medical need exists for a medication without regard to previous use.
--- NOTE | 2021-09-01 13:41 | MRI Report ---
PROCEDURE: MRCP W/WO INDICATIONS: liver abscess, pancreatitis CONTRAST: IV CONTRAST: Gadavist ml: 8.1 TECHNIQUE: Coronal HASTE, axial 2D FLASH in- and [id number]; axial breath-hold T2 FSE. Oblique coronal and ax ial thin-slice HASTE, radial thick-slab HASTE centered on the extrahepatic bile ducts. Dynamic axial VIBE during the administration of contrast; post-contrast coronal VIBE or 2D FLASH with fat saturati on from the hepatic dome to the iliac crests. Diffusion weighted imaging and ADC also performed. COMPARISON: CT abdomen pelvis 08/31/2021. FINDINGS: Image quality: There is motion artifact limiting evaluation. Lung bases: No basal pleural effusions. Heart size is normal. Biliary ducts and panreas: The gallbladder is distended with a small dependent gallstone measuring ap proximately 0.3 cm. No definite gallbladder wall thickening or pericholecystic fluid. No intra or ext rahepatic biliary ductal dilatation. There is soft tissue fullness at the ampulla without a definite discrete mass. There is suggestion of a low signal intensity filling defect in the distal common bile duct at the ampulla which may reflect choledocholithiasis but evaluation is limited by motion artifa ct. No pancreatic duct dilatation. There is peripancreatic edema and fluid redemonstrated consistent with acute interstitial edematous pancreatitis. No areas of hypoenhancement in the pancreas to suggest ne crosis. No acute peripancreatic fluid collections. Solid organs: Within segment 4A of the left hepatic lobe, there is a thick-walled peripherally enhan cing fluid collection measuring approximately 4.6 x 3.4 x 4.0 cm. There is mild indistinct enhancemen t in the adjacent hepatic parenchyma. The spleen is normal in size. No adrenal nodules. Kidneys demon strate no hydronephrosis. Nodes and vessels: No retroperitoneal or mesenteric adenopathy by size criteria. Aorta and inferior vena cava are normal in size. Bowel and peritoneum: There is mild wall thickening of the visualized portion of the duodenum consi stent with a duodenitis. There is associated mild fat stranding and free fluid. Bones and soft tissues: No ventral hernias. Bone marrow is normal in overall signal. IMPRESSION: 1. Cholelithiasis with a small dependent gallstone demonstrated but no definite evidence of cholecyst itis. 2. Peripancreatic fat stranding and fluid redemonstrated consistent with acute interstitial edematous pancreatitis. No acute peripancreatic fluid collections or evidence of necrosis. No pancreatic duct dilatation. 4. No biliary ductal dilatation. There is possible choledocholithiasis in the distal common bile duct but evaluation is limited by motion artifact. Recommend correlation with laboratory values. 5. Mild soft tissue fullness in the ampulla without a definite discrete mass. The findings are also n onspecific and may reflect sequelae of a recently passed stone or a subtle mass. Recommend continued follow-up with laboratory values and if there is clinical suspicion for an obstructing lesion, furthe r evaluation may be obtained with ERCP. 6. Segmental wall thickening of the third portion of the duodenum with associated fat stranding and f luid consistent with a duodenitis. 7. Thick-walled peripherally enhancing fluid collection in the left hepatic lobe again suggestive of an abscess. Reviewed by: Junior Juarez MD on 09/01/2021 1:40 PM PST Approved by: Junior Juarez MD on 09/01/2021 1:40 PM PST Station ID: [id number]
[2021-09-01 14:31] LABS: ALBUMIN 2.8 g/dL (3.2-5.5); BILIRUBIN,DIRECT 1.9 mg/dL (0.1-0.5); BILIRUBIN,TOTAL 3.1 mg/dL (0.2-1.0); TOTAL PROTEIN 5.9 g/dL (6.7-8.2)
[2021-09-01] MEDS: LACTATED RINGERS 1,000 ML IV SCH ×3 (15:08→20:28)
[2021-09-01] MEDS ORDERED: GADOBUTROL 10 MMOL/10 ML VIAL IVP ONE (15:35)
--- NOTE | 2021-09-01 17:28 | PROVIDER PROGRESS NOTE ---
Objective - Vital Signs/Intake & Output Vital Signs: Vital Signs x48h Temp Pulse Resp BP Pulse Ox 09/01/21 16:19 36.7 C 62 19 113/68 94 09/01/21 12:26 36.7 C 95 19 114/66 95 Intake & Output: Intake & Output 08/29/21 08/30/21 08/31/21 09/01/21 23:59 23:59 23:59 23:59 Intake Total 100 3610 Balance 100 3610 - Lab Results Fish Bones: 09/01/21 06:28 09/01/21 06:28 Other Labs: Lab Results x24hrs 09/01/21 09/01/21 09/01/21 Range/Units 10:48 10:48 09:39 WBC (4.8-10.8) x10^3/uL RBC (4.70-6.10) 10^6/uL Hgb (14.0-18.0) g/dL Hct (42.0-52.0) % MCV (80.0-94.0) fL MCH (27.0-31.0) pg MCHC (32.0-36.0) g/dL RDW (12.0-15.0) % Plt Count (130-450) 10^3/uL MPV (7.4-11.4) fL Neut # (Auto) (1.5-6.6) 10^3/uL Lymph # (Auto) (1.5-3.5) 10^3/uL Meriwether # (Auto) (0.0-1.0) 10^3/uL Eos # (Auto) (0.0-0.7) 10^3/uL Baso # (Auto) (0.0-0.1) 10^3/uL Absolute Nucleated RBC x10^3/uL Nucleated RBC % /100WBC PT (9.9-12.6) secs INR (0.8-1.2) Sodium (135-145) mmol/L Potassium (3.5-5.0) mmol/L Chloride (101-111) mmol/L Carbon Dioxide (21-32) mmol/L Anion Gap (6-13) BUN (6-20) mg/dL Creatinine (0.6-1.2) mg/dL Estimated GFR (MDRD) (>89) Glucose (70-100) mg/dL Calcium (8.5-10.3) mg/dL Total Bilirubin 3.1 H (0.2-1.0) mg/dL Direct Bilirubin 1.9 H (0.1-0.5) mg/dL AST 446 H (10-42) IU/L ALT 466 H (10-60) IU/L Alkaline Phosphatase 204 H (42-121) IU/L Troponin I High Sens 21.5 H* (2.3-19.7) ng/L Total Protein 5.9 L (6.7-8.2) g/dL Albumin 2.8 L (3.2-5.5) g/dL Globulin 3.1 (2.1-4.2) g/dL Albumin/Globulin Ratio (1.0-2.2) Amylase (28-100) U/L Lipase (22-51) U/L Prostate Specific Ag < 0.008 (0.000-2.000) ng/mL Free PSA < 0.005 L (0.16-2.81) ng/mL % Free PSA Calc TNP Nasal Adenovirus (PCR) Nasal B. parapertussis DNA (PCR) Nasal Coronavir 229E PCR Nasal Coronavir HKU1 PCR Nasal Coronavir NL63 PCR Nasal Coronavir OC43 PCR Nasal Enterovir/Rhinovir PCR Nasal Influenza B PCR Nasal Influenza A PCR Nasal Parainfluen 1 PCR Nasal Parainfluen 2 PCR Nasal Parainfluen 3 PCR Nasal Parainfluen 4 PCR Nasal RSV (PCR) Nasal B.pertussis DNA PCR Nasal C.pneumoniae (PCR) Kraig Human Metapneumo PCR Nasal M.pneumoniae (PCR) Nasal SARS-CoV-2 (PCR) 09/01/21 09/01/21 09/01/21 Range/Units 06:28 06:28 06:28 WBC 13.1 H (4.8-10.8) x10^3/uL RBC 4.44 L (4.70-6.10) 10^6/uL Hgb 13.6 L (14.0-18.0) g/dL Hct 41.1 L (42.0-52.0) % MCV 92.6 (80.0-94.0) fL MCH 30.6 (27.0-31.0) pg MCHC 33.1 (32.0-36.0) g/dL RDW 12.5 (12.0-15.0) % Plt Count 312 (130-450) 10^3/uL MPV 8.8 (7.4-11.4) fL Neut # (Auto) 12.1 H (1.5-6.6) 10^3/uL Lymph # (Auto) 0.3 L (1.5-3.5) 10^3/uL Meriwether # (Auto) 0.6 (0.0-1.0) 10^3/uL Eos # (Auto) 0.0 (0.0-0.7) 10^3/uL Baso # (Auto) 0.0 (0.0-0.1) 10^3/uL Absolute Nucleated RBC 0.00 x10^3/uL Nucleated RBC % 0.0 /100WBC PT (9.9-12.6) secs INR (0.8-1.2) Sodium 135 (135-145) mmol/L Potassium 4.0 (3.5-5.0) mmol/L Chloride 100 L (101-111) mmol/L Carbon Dioxide 25 (21-32) mmol/L Anion Gap 10.0 (6-13) BUN 16 (6-20) mg/dL Creatinine 1.2 (0.6-1.2) mg/dL Estimated GFR (MDRD) 59 L (>89) Glucose 229 H (70-100) mg/dL Calcium 8.4 L (8.5-10.3) mg/dL Total Bilirubin 2.5 H (0.2-1.0) mg/dL Direct Bilirubin (0.1-0.5) mg/dL AST 484 H (10-42) IU/L ALT 470 H (10-60) IU/L Alkaline Phosphatase 214 H (42-121) IU/L Troponin I High Sens 23.3 H* (2.3-19.7) ng/L Total Protein 6.1 L (6.7-8.2) g/dL Albumin 3.0 L (3.2-5.5) g/dL Globulin 3.1 (2.1-4.2) g/dL Albumin/Globulin Ratio 1.0 (1.0-2.2) Amylase 1261 H* (28-100) U/L Lipase (22-51) U/L Prostate Specific Ag (0.000-2.000) ng/mL Free PSA (0.16-2.81) ng/mL % Free PSA Calc Nasal Adenovirus (PCR) Nasal B. parapertussis DNA (PCR) Nasal Coronavir 229E PCR Nasal Coronavir HKU1 PCR Nasal Coronavir NL63 PCR Nasal Coronavir OC43 PCR Nasal Enterovir/Rhinovir PCR Nasal Influenza B PCR Nasal Influenza A PCR Nasal Parainfluen 1 PCR Nasal Parainfluen 2 PCR Nasal Parainfluen 3 PCR Nasal Parainfluen 4 PCR Nasal RSV (PCR) Nasal B.pertussis DNA PCR Nasal C.pneumoniae (PCR) Kraig Human Metapneumo PCR Nasal M.pneumoniae (PCR) Nasal SARS-CoV-2 (PCR) 08/31/21 08/31/21 08/31/21 Range/Units 20:30 20:09 17:32 WBC (4.8-10.8) x10^3/uL RBC (4.70-6.10) 10^6/uL Hgb (14.0-18.0) g/dL Hct (42.0-52.0) % MCV (80.0-94.0) fL MCH (27.0-31.0) pg MCHC (32.0-36.0) g/dL RDW (12.0-15.0) % Plt Count (130-450) 10^3/uL MPV (7.4-11.4) fL Neut # (Auto) (1.5-6.6) 10^3/uL Lymph # (Auto) (1.5-3.5) 10^3/uL Meriwether # (Auto) (0.0-1.0) 10^3/uL Eos # (Auto) (0.0-0.7) 10^3/uL Baso # (Auto) (0.0-0.1) 10^3/uL Absolute Nucleated RBC x10^3/uL Nucleated RBC % /100WBC PT 12.8 H (9.9-12.6) secs INR 1.2 (0.8-1.2) Sodium (135-145) mmol/L Potassium (3.5-5.0) mmol/L Chloride (101-111) mmol/L Carbon Dioxide (21-32) mmol/L Anion Gap (6-13) BUN (6-20) mg/dL Creatinine (0.6-1.2) mg/dL Estimated GFR (MDRD) (>89) Glucose (70-100) mg/dL Calcium (8.5-10.3) mg/dL Total Bilirubin (0.2-1.0) mg/dL Direct Bilirubin (0.1-0.5) mg/dL AST (10-42) IU/L ALT (10-60) IU/L Alkaline Phosphatase (42-121) IU/L Troponin I High Sens 7.2 (2.3-19.7) ng/L Total Protein (6.7-8.2) g/dL Albumin (3.2-5.5) g/dL Globulin (2.1-4.2) g/dL Albumin/Globulin Ratio (1.0-2.2) Amylase (28-100) U/L Lipase (22-51) U/L Prostate Specific Ag (0.000-2.000) ng/mL Free PSA (0.16-2.81) ng/mL % Free PSA Calc Nasal Adenovirus (PCR) NOT DETECTED Nasal B. parapertussis DNA (PCR) NOT DETECTED Nasal Coronavir 229E PCR NOT DETECTED Nasal Coronavir HKU1 PCR NOT DETECTED Nasal Coronavir NL63 PCR NOT DETECTED Nasal Coronavir OC43 PCR NOT DETECTED Nasal Enterovir/Rhinovir PCR NOT DETECTED Nasal Influenza B PCR NOT DETECTED Nasal Influenza A PCR NOT DETECTED Nasal Parainfluen 1 PCR NOT DETECTED Nasal Parainfluen 2 PCR NOT DETECTED Nasal Parainfluen 3 PCR NOT DETECTED Nasal Parainfluen 4 PCR NOT DETECTED Nasal RSV (PCR) NOT DETECTED Nasal B.pertussis DNA PCR NOT DETECTED Nasal C.pneumoniae (PCR) NOT DETECTED Kraig Human Metapneumo PCR NOT DETECTED Nasal M.pneumoniae (PCR) NOT DETECTED Nasal SARS-CoV-2 (PCR) NOT DETECTED 08/31/21 08/31/21 Range/Units 17:32 17:32 WBC 5.1 (4.8-10.8) x10^3/uL RBC 4.48 L (4.70-6.10) 10^6/uL Hgb 14.1 (14.0-18.0) g/dL Hct 41.7 L (42.0-52.0) % MCV 93.1 (80.0-94.0) fL MCH 31.5 H (27.0-31.0) pg MCHC 33.8 (32.0-36.0) g/dL RDW 12.4 (12.0-15.0) % Plt Count 337 (130-450) 10^3/uL MPV 8.6 (7.4-11.4) fL Neut # (Auto) 3.9 (1.5-6.6) 10^3/uL Lymph # (Auto) 0.6 L (1.5-3.5) 10^3/uL Meriwether # (Auto) 0.3 (0.0-1.0) 10^3/uL Eos # (Auto) 0.1 (0.0-0.7) 10^3/uL Baso # (Auto) 0.1 (0.0-0.1) 10^3/uL Absolute Nucleated RBC 0.00 x10^3/uL Nucleated RBC % 0.0 /100WBC PT (9.9-12.6) secs INR (0.8-1.2) Sodium 137 (135-145) mmol/L Potassium 3.6 (3.5-5.0) mmol/L Chloride 100 L (101-111) mmol/L Carbon Dioxide 27 (21-32) mmol/L Anion Gap 10.0 (6-13) BUN 15 (6-20) mg/dL Creatinine 1.0 (0.6-1.2) mg/dL Estimated GFR (MDRD) 73 L (>89) Glucose 126 H (70-100) mg/dL Calcium 8.6 (8.5-10.3) mg/dL Total Bilirubin 0.9 (0.2-1.0) mg/dL Direct Bilirubin (0.1-0.5) mg/dL AST 171 H (10-42) IU/L ALT 123 H (10-60) IU/L Alkaline Phosphatase 165 H (42-121) IU/L Troponin I High Sens (2.3-19.7) ng/L Total Protein 6.5 L (6.7-8.2) g/dL Albumin 3.4 (3.2-5.5) g/dL Globulin 3.1 (2.1-4.2) g/dL Albumin/Globulin Ratio 1.1 (1.0-2.2) Amylase (28-100) U/L Lipase 3948 H (22-51) U/L Prostate Specific Ag (0.000-2.000) ng/mL Free PSA (0.16-2.81) ng/mL % Free PSA Calc Nasal Adenovirus (PCR) Nasal B. parapertussis DNA (PCR) Nasal Coronavir 229E PCR Nasal Coronavir HKU1 PCR Nasal Coronavir NL63 PCR Nasal Coronavir OC43 PCR Nasal Enterovir/Rhinovir PCR Nasal Influenza B PCR Nasal Influenza A PCR Nasal Parainfluen 1 PCR Nasal Parainfluen 2 PCR Nasal Parainfluen 3 PCR Nasal Parainfluen 4 PCR Nasal RSV (PCR) Nasal B.pertussis DNA PCR Nasal C.pneumoniae (PCR) Kraig Human Metapneumo PCR Nasal M.pneumoniae (PCR) Nasal SARS-CoV-2 (PCR) Sepsis Event Note (H) - Evaluation Current Stage of Sepsis: Sepsis Possible source of Sepsis: positive: GI tract/intra-abdominal - Sepsis Criteria Sepsis Criteria: Recorded Temperature greater than 38.3C or Less than 36C, WBC count greater than 12,000 or less than 4000, Hepatic: Bilirubin greater than 2mg/dl Assessment/Plan - Problem List (1) Hepatic abscess Impression: Discussed his findings with hospitalist today and recent results. lfts are increasing. mrcp report possible common bile duct stone. in my opinion series 701 image 1 clearly shows a sizable distal cbd stone that is unlikely to pass. we do not have lap cbd capability here and even if we did I believe this would be a difficult stone to remove without fragmenting and leaving pieces behind. ideally he should be seen and evaluated for ERCP at a facility that can offer that procedure. his gallbladder is not inflamed. gallbladder surgery is not needed at this time.
--- NOTE | 2021-09-01 17:56 | DISCHARGE SUMMARY ---
Discharge Summary Admit Date: 08/31/21 Discharge Date: 09/01/21 Discharging Provider: Yovanny Rowland Primary Care Provider: Maura Fuentes Code Status: Attempt Resuscitation Condition at Discharge: Serious Discharge Disposition: 02 Transfer Acute Care Hosp [facility] - DIAGNOSES Admission Diagnoses: Hepatic abscess E. coli bacteremia COPD History of prostate cancer GERD Chest pain Hyperglycemia Discharge Diagnoses with Status of Each Condition: Sepsis - ongoing. Left lobe hepatic abscess - ongoing. Choledocholithiasis - ongoing. Gallstone pancreatitis - ongoing. E. coli bacteremia - resolved. Transaminitis - ongoing. History of prostate cancer - stable. History of COPD - stable. Hyperglycemia - stable. Chest pain - resolved. - HPI History of Present Illness: H&P per Dr. Rico: This is a 76-year-old white male who lives in his own home, is considered independent, and presented to the emergency room on August 18 with fever, chills, malaise. Accompanying that was shortness of breath. He smoked a pack and a half a day and quit in 2005. He states there is no change in phlegm. He hocks up a loogie once or twice a day and that is unchanged. It's a small amount and hasn't changed color in years. At that time he had no chest pain, cough, just shortness of breath. He is fully immunized with Moderna vaccine. He denied any abdominal pain, change in bowel habits. In the emergency room he had a low-grade temperature of 37.1. White cell count was normal. Lactic acid 2.1. BMP was normal. A chest x-ray had bibasilar opacities and trace right lung effusion. The thought process was that he had possible pneumonia. He was not hypoxic, tachycardic, and able to go home. He was sent home with Augmentin and azithromycin. Blood cultures were became positive within 12 hours. They grew out E. coli. The patient was contacted on August 19 and was improving. He was then contacted again August 22 when 2 out of 2 blood cultures grew out E. coli. And he was feeling better. Both times he was told to follow-up with his primary care provider. He followed up with his primary care provider today who sent him to the lab to get repeat blood cultures. He then went home. While he was home, sitting on the sofa watching TV, he had a 15-minute episode of substernal chest pain. It was nonradiating. There was no sweats, nausea or shortness of breath with it. No palpitations. He has no history of cardiac disease. He was concerned about heart disease and came to the emergency room. He states that he has been "off his feet" since August 18. As such he has not eaten very much and has lost about 10 pounds. No specific abdominal pain. He has been fatigued, no energy. On today's visit his temperature was 36.4. Heart rate 73. Respirations 18. Blood pressure 137/71 and he was 96% on room air. His exam was unremarkable for cardiopulmonary disease. He is EKG was essentially normal. Troponin was 7. Chest x-ray had the same bibasilar atelectasis. However, more extensive blood work was done today. He had a CMP done which showed AST to be 171, ALT 123, alk phos 165 and bilirubin 0.9. Lipase was 3948. In trying to track down why his liver enzymes and lipase were elevated, a CT of the abdomen and pelvis was ordered. The liver and spleen were normal in size. Biliary system was not dilated. Pancreas enhance normally with mild fat stranding surrounding the pancreas. However, in the medial segment of the left hepatic lobe superiorly there was a 45 mm diameter peripherally enhancing low-density focus compatible with an abscess. There is no appendicitis, diverticulitis. Small hiatal hernia. He had some secondary inflammation of the duodenum. Although he did not have a fever or elevated white cell count, the patient experienced rigors in the emergency room. Dr. Couch has already spoken to Dr. Velez from general surgery. He is also spoken to radiology on-call giovanny, and both specialties agree that the patient will need percutaneous aspiration if not catheter drainage. Dr. Banks gave the patient Karely in the emergency room. Drinks 2 beers a day. Is not a diabetic. Has not had any recent travel outside [facility], much less the country. He does not like fish and as such does not eat sushi. He lives in [place] and drinks city water. 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 - CONSULTS | PROCEDURES Consultations: General Surgery - HOSPITAL COURSE Hospital Course: He was admitted to the floor for left hepatic lobe abscess and gallstone agee creatitis. He was started on Zosyn and Flagyl IV empirically. Dual anaerobic coverage was provided per Jackson guidelines and to cover for Entamoeba histolytica. Serologies were ordered for Entamoeba histolytica and are pending although the patient has no risk factors. He was made n.p.o. and treated with IV fluids as he received 2 L of lactated Ringer's and started on maintenance IV fluid. The following morning it was noted his LFTs had risen compared to admission as his T bili was approximately 3 and his AST/ALT were now in the 400s. The patient did admit to a history of alcohol use but reports only 2 alcoholic beverages a day and he has not had a drink in over 2 weeks. MRCP was ordered which confirmed a left hepatic lobe abscess which is about 4.5 cm. There is also evidence of cholelithiasis and likely choledocholithiasis although it could not be definitively confirmed. General surgery did review the images and they feel that this is likely choledocholithiasis and recommended ERCP. Repeat blood cultures have been negative. The patient's white count did increase to 13,000 with a left shift. He has been hemodynamically stable. He remains NPO. With regards to his chest pain, his EKG did not suggest ischemia and his troponins were only mildly elevated and flat. There is low suspicion for ACS and it was felt that this was likely demand ischemia. His chest pain has also since resolved and in hindsight he feels like it was more epigastric pain than chest pain. He was also noted to be hyperglycemic and he was started on sliding scale and A1c was ordered but is pending. Given the hepatic abscess and concern for choledocholithiasis, it was felt the patient would require transfer to higher level of care for ERCP. The patient was graciously accepted in transfer by Dr. Babin at [facility]. I discussed this with the patient who was in agreement with the treatment plan. The patient is transferred in stable condition via ALS given he requires IV fluids and IV antibiotics. - ALLERGIES Allergies/Adverse Reactions: Allergies Allergy/AdvReac Type Severity Reaction Status Date / Time No Known Drug Allergies Allergy Verified 08/31/21 17:18 - MEDICATIONS Home Medications: Ambulatory Orders Medication Instructions Recorded Confirmed Cholecalciferol [Vitamin D3] 5,000 unit PO DAILY 09/01/21 09/01/21 Loratadine [Claritin] 10 mg PO DAILY PRN 09/01/21 09/01/21 Simvastatin [Zocor] 40 mg PO QPM 09/01/21 09/01/21 - PHYSICAL EXAM AT DISCHARGE General Appearance: positive: No acute distress, Alert Eyes Bilateral: positive: Normal inspection ENT: positive: ENT inspection nml Neck: positive: Nml inspection Respiratory: positive: No respiratory distress. negative: Wheezes, Rales Cardiovascular: positive: Regular rate & rhythm, No murmur. negative: Tachycardia Abdomen: positive: No distention, Tenderness (Epigastric and right upper quadrant tenderness.). negative: Non-tender Skin: positive: Warm, Dry Extremities: positive: No pedal edema Neurologic/Psychiatric: positive: Motor nml. negative: Disoriented to person, Disoriented to place, Disoriented to time - LABS Result Diagrams: 09/01/21 06:28 09/01/21 06:28 Other Lab Results: Vital Signs - 24 hr 08/31/21 08/31/21 08/31/21 18:18 20:00 21:30 Temperature 37.1 C Heart Rate 69 77 Heart Rate [ 73 Radial] Respiratory 13 13 16 Rate Blood Pressure 137/79 H 108/60 Blood Pressure [Left Radial artery] Blood Pressure 114/55 L [Right Brachial artery] O2 Saturation 97 97 97 09/01/21 09/01/21 09/01/21 00:42 07:55 12:26 Temperature 38.1 C H 37.2 C 36.7 C Heart Rate Heart Rate [ 88 65 95 Radial] Respiratory 17 18 19 Rate Blood Pressure Blood Pressure 112/60 [Left Radial artery] Blood Pressure 116/64 114/66 [Right Brachial artery] O2 Saturation 92 95 95 09/01/21 16:19 Temperature 36.7 C Heart Rate Heart Rate [ 62 Radial] Respiratory 19 Rate Blood Pressure Blood Pressure [Left Radial artery] Blood Pressure 113/68 [Right Brachial artery] O2 Saturation 94 Oxygen O2 Source Room air Laboratory Tests 08/31/21 08/31/21 08/31/21 17:32 17:32 17:32 WBC 5.1 RBC 4.48 L Hgb 14.1 Hct 41.7 L MCV 93.1 MCH 31.5 H MCHC 33.8 RDW 12.4 Plt Count 337 MPV 8.6 Neut # (Auto) 3.9 Lymph # (Auto) 0.6 L Boundary # (Auto) 0.3 Eos # (Auto) 0.1 Baso # (Auto) 0.1 Absolute Nucleated RBC 0.00 Nucleated RBC % 0.0 PT INR Sodium 137 Potassium 3.6 Chloride 100 L Carbon Dioxide 27 Anion Gap 10.0 BUN 15 Creatinine 1.0 Estimated GFR (MDRD) 73 L Glucose 126 H Calcium 8.6 Total Bilirubin 0.9 Direct Bilirubin AST 171 H ALT 123 H Alkaline Phosphatase 165 H Troponin I High Sens 7.2 Total Protein 6.5 L Albumin 3.4 Globulin 3.1 Albumin/Globulin Ratio 1.1 Amylase Lipase 3948 H Prostate Specific Ag Free PSA % Free PSA Calc Nasal Adenovirus (PCR) Nasal B. parapertussis DNA (PCR) Nasal Coronavir 229E PCR Nasal Coronavir HKU1 PCR Nasal Coronavir NL63 PCR Nasal Coronavir OC43 PCR Nasal Enterovir/Rhinovir PCR Nasal Influenza B PCR Nasal Influenza A PCR Nasal Parainfluen 1 PCR Nasal Parainfluen 2 PCR Nasal Parainfluen 3 PCR Nasal Parainfluen 4 PCR Nasal RSV (PCR) Nasal B.pertussis DNA PCR Nasal C.pneumoniae (PCR) Kraig Human Metapneumo PCR Nasal M.pneumoniae (PCR) Nasal SARS-CoV-2 (PCR) 08/31/21 08/31/21 09/01/21 20:09 20:30 06:28 WBC 13.1 H RBC 4.44 L Hgb 13.6 L Hct 41.1 L MCV 92.6 MCH 30.6 MCHC 33.1 RDW 12.5 Plt Count 312 MPV 8.8 Neut # (Auto) 12.1 H Lymph # (Auto) 0.3 L Boundary # (Auto) 0.6 Eos # (Auto) 0.0 Baso # (Auto) 0.0 Absolute Nucleated RBC 0.00 Nucleated RBC % 0.0 PT 12.8 H INR 1.2 Sodium Potassium Chloride Carbon Dioxide Anion Gap BUN Creatinine Estimated GFR (MDRD) Glucose Calcium Total Bilirubin Direct Bilirubin AST ALT Alkaline Phosphatase Troponin I High Sens Total Protein Albumin Globulin Albumin/Globulin Ratio Amylase Lipase Prostate Specific Ag Free PSA % Free PSA Calc Nasal Adenovirus (PCR) NOT DETECTED Nasal B. parapertussis DNA (PCR) NOT DETECTED Nasal Coronavir 229E PCR NOT DETECTED Nasal Coronavir HKU1 PCR NOT DETECTED Nasal Coronavir NL63 PCR NOT DETECTED Nasal Coronavir OC43 PCR NOT DETECTED Nasal Enterovir/Rhinovir PCR NOT DETECTED Nasal Influenza B PCR NOT DETECTED Nasal Influenza A PCR NOT DETECTED Nasal Parainfluen 1 PCR NOT DETECTED Nasal Parainfluen 2 PCR NOT DETECTED Nasal Parainfluen 3 PCR NOT DETECTED Nasal Parainfluen 4 PCR NOT DETECTED Nasal RSV (PCR) NOT DETECTED Nasal B.pertussis DNA PCR NOT DETECTED Nasal C.pneumoniae (PCR) NOT DETECTED Kraig Human Metapneumo PCR NOT DETECTED Nasal M.pneumoniae (PCR) NOT DETECTED Nasal SARS-CoV-2 (PCR) NOT DETECTED 09/01/21 09/01/21 09/01/21 06:28 06:28 09:39 WBC RBC Hgb Hct MCV MCH MCHC RDW Plt Count MPV Neut # (Auto) Lymph # (Auto) Boundary # (Auto) Eos # (Auto) Baso # (Auto) Absolute Nucleated RBC Nucleated RBC % PT INR Sodium 135 Potassium 4.0 Chloride 100 L Carbon Dioxide 25 Anion Gap 10.0 BUN 16 Creatinine 1.2 Estimated GFR (MDRD) 59 L Glucose 229 H Calcium 8.4 L Total Bilirubin 2.5 H Direct Bilirubin AST 484 H ALT 470 H Alkaline Phosphatase 214 H Troponin I High Sens 23.3 H* Total Protein 6.1 L Albumin 3.0 L Globulin 3.1 Albumin/Globulin Ratio 1.0 Amylase 1261 H* Lipase Prostate Specific Ag < 0.008 Free PSA < 0.005 L % Free PSA Calc TNP Nasal Adenovirus (PCR) Nasal B. parapertussis DNA (PCR) Nasal Coronavir 229E PCR Nasal Coronavir HKU1 PCR Nasal Coronavir NL63 PCR Nasal Coronavir OC43 PCR Nasal Enterovir/Rhinovir PCR Nasal Influenza B PCR Nasal Influenza A PCR Nasal Parainfluen 1 PCR Nasal Parainfluen 2 PCR Nasal Parainfluen 3 PCR Nasal Parainfluen 4 PCR Nasal RSV (PCR) Nasal B.pertussis DNA PCR Nasal C.pneumoniae (PCR) Kraig Human Metapneumo PCR Nasal M.pneumoniae (PCR) Nasal SARS-CoV-2 (PCR) 09/01/21 09/01/21 10:48 10:48 WBC RBC Hgb Hct MCV MCH MCHC RDW Plt Count MPV Neut # (Auto) Lymph # (Auto) Boundary # (Auto) Eos # (Auto) Baso # (Auto) Absolute Nucleated RBC Nucleated RBC % PT INR Sodium Potassium Chloride Carbon Dioxide Anion Gap BUN Creatinine Estimated GFR (MDRD) Glucose Calcium Total Bilirubin 3.1 H Direct Bilirubin 1.9 H AST 446 H ALT 466 H Alkaline Phosphatase 204 H Troponin I High Sens 21.5 H* Total Protein 5.9 L Albumin 2.8 L Globulin 3.1 Albumin/Globulin Ratio Amylase Lipase Prostate Specific Ag Free PSA % Free PSA Calc Nasal Adenovirus (PCR) Nasal B. parapertussis DNA (PCR) Nasal Coronavir 229E PCR Nasal Coronavir HKU1 PCR Nasal Coronavir NL63 PCR Nasal Coronavir OC43 PCR Nasal Enterovir/Rhinovir PCR Nasal Influenza B PCR Nasal Influenza A PCR Nasal Parainfluen 1 PCR Nasal Parainfluen 2 PCR Nasal Parainfluen 3 PCR Nasal Parainfluen 4 PCR Nasal RSV (PCR) Nasal B.pertussis DNA PCR Nasal C.pneumoniae (PCR) Kraig Human Metapneumo PCR Nasal M.pneumoniae (PCR) Nasal SARS-CoV-2 (PCR) - DIAGNOSTIC IMAGING Diagnostic Imaging Results: Final report reviewed Diagnostic Imaging Results Comments: CT abdomen pelvis with IV contrast on August 31 revealed acute pancreatitis. Secondary inflammation of the duodenum. Low-density focus within the left hepatic lobe, suggestive of abscess. Small hiatal hernia. Normal appendix. GANG SAWYER on September 01 revealed cholelithiasis with a small dependent gallstone but no evidence of cholecystitis. Peripancreatic fat stranding and fluid redemonstrated consistent with acute interstitial edematous pancreatitis. No acute peripancreatic fluid collection or evidence of necrosis. No pancreatic duct dilatation. No biliary ductal dilatation. There is possible choledocholithiasis in the distal common bile duct but evaluation is limited by motion artifact. Recommend correlation with laboratory values. Mild soft tissue fullness in the ampulla without a definitive discrete mass. The findings are also nonspecific and may reflect sequela of a recently passed stone or subtle mass. Segmental wall thickening of the third portion of duodenum with associated fat stranding and fluid consistent with a duodenitis. Thick-walled peripherally enhancing fluid collection left hepatic lobe again suggestive of an abscess. - SEPSIS Current Stage of Sepsis: Sepsis Possible source of Sepsis: GI tract/intra-abdominal Sepsis Criteria: Recorded Temperature greater than 38.3C or Less than 36C, WBC count greater than 12,000 or less than 4000, Hepatic: Bilirubin greater than 2mg/dl
[2021-09-01] MEDS ORDERED: INSULIN REGULAR HUMAN 300 UNIT/3 ML VIAL SUBQ SCH (18:00)
[2021-09-01 20:17] VITALS: BP 122/65
[2021-09-02] MEDS ORDERED: ENOXAPARIN 40 MG/0.4 ML SYRINGE SUBQ SCH (09:00)
[2021-09-02 18:44] LABS: ESTIMATED AVERAGE GLUCOSE 137 mg/dL (70-100); HEMOGLOBIN A1c% 6.4 % (4.27-6.07)
== END 2021-09-01 21:00 | disposition short-term general hospital (02) | DRG 441 ==
LOC: ED 17:03 → MS2 19:59
PROVIDERS: ADMIT Specialist; ATTEND Internal Medicine
DX: K85.90 Acute pancreatitis without necrosis or infection, unspecified (principal); K75.0 Abscess of liver; Z20.822 Contact with and (suspected) exposure to COVID-19; R68.89 Other general symptoms and signs; A41.51 Sepsis due to Escherichia coli [E. coli]; K85.10 Biliary acute pancreatitis without necrosis or infection; K80.70 Calculus of gallbladder and bile duct without cholecystitis without obstruction; R74.01 Elevation of levels of liver transaminase levels; J43.9 Emphysema, unspecified; R73.9 Hyperglycemia, unspecified; Z87.891 Personal history of nicotine dependence; I10 Essential (primary) hypertension; K21.9 Gastro-esophageal reflux disease without esophagitis; R33.9 Retention of urine, unspecified; R32 Unspecified urinary incontinence; R35.1 Nocturia; R35.0 Frequency of micturition; Z85.46 Personal history of malignant neoplasm of prostate; R07.9 Chest pain, unspecified; Z90.79 Acquired absence of other genital organ(s); Z87.01 Personal history of pneumonia (recurrent)
CPT/HCPCS: 36415; 71045; 74177; 74183; 80053; 80076; 82150; 83036; 83690; 84153; 84154; 84484; 85025; 85610; 87040; 87631; 93005; 96374; 99285; A9270; A9585; J7120; Q9967; 0202U

== ENCOUNTER 2021-09-01 20:36 | Outpatient (CLI) | payer MEDICARE, OTHER | END 2021-09-01 20:37 | disposition short-term general hospital (02) | LOC: EMS 20:36 | PROVIDERS: ATTEND Nurse Practitioner Gerontology | DX: R78.81 Bacteremia (principal); K80.50 Calculus of bile duct without cholangitis or cholecystitis without obstruction; K75.0 Abscess of liver | CPT/HCPCS: A0425; A0428 ==